=== PATIENT | female | born 1955 | race Caucasian/White ===

== ENCOUNTER → 2018-11-16 16:34 | Outpatient (CLI) | payer OTHER, SELFPAY ==
--- NOTE | 2018-11-23 17:08 | PM.PFT.1 ---
Pulmonary Function Test Referral & Results Date Patient Seen: 11/16/18 Requesting provider: Leigha Rodriguez Results: The spirometry demonstrates an FVC of 1.70 L which is 57% of predicted. The FEV1 was measured at 1.09 L which is 47% of predicted. The FEV1/FVC ratio was 60 for which is 82% of predicted. Following the administration of bronchodilator there was no appreciable change. Lung volumes show an SVC of 1.66 L which is 59% of predicted. The diffusing capacity was measured at 9.9 too which is 46% of predicted. No hemoglobin value was provided, so no correction for potential anemia could be made, if appropriate. The maximum voluntary ventilation was reduced Interpretation: Study demonstrates severe obstructive lung disease without evidence of benefit following bronchodilator There is also moderately severe restrictive lung disease present There is also severe diffusing defect suggesting significant disease at the capillary alveolar level. Clinical correlation suggested
== END ==
PROVIDERS: Visit Provider Internal Medicine Cardiovascular Disease
DX: R06.09 Other forms of dyspnea (principal)
CPT/HCPCS: 94060; 94726; 94729